=== PATIENT | male | born 1955 | race Caucasian/White ===

== ENCOUNTER → 2024-10-15 12:34 | Outpatient (REF) | payer MEDICARE, OTHER, SELFPAY | LOC: HWRCS 12:34 | PROVIDERS: ATTENDING PHYSICIAN Internal Medicine Cardiovascular Disease; FAMILY PHYSICIAN Internal Medicine | DX: I48.19 Other persistent atrial fibrillation (principal) | CPT/HCPCS: 93306 ==

== ENCOUNTER → 2024-10-17 07:34 | Outpatient (REF) | payer MEDICARE, OTHER, SELFPAY | LOC: DHCBC/DCA 07:34 | PROVIDERS: ATTENDING PHYSICIAN Internal Medicine Cardiovascular Disease; FAMILY PHYSICIAN Internal Medicine | DX: I48.19 Other persistent atrial fibrillation (principal) | CPT/HCPCS: 78452; 93017; A9500 ==

== ENCOUNTER 2024-11-05 11:20 | Day surgery (SDC) | payer MEDICARE, OTHER, SELFPAY ==
[2024-11-05 12:37] VITALS: BMI 30.7
--- NOTE | 2024-11-05 12:38 | ITS.CL.CARDI ---
[employer] - Cardioversion
Cardioversion
Procedure Report:
Date of Procedure: 11/05/2024.
Procedure: Cardioversion.
Indication: Symptomatic atrial fibrillation.
Performing Physician: Bianca Pack MD
Technique: The patient was brought to the holding area. Signed informed consent was obtained. A time out was called and performed. The patient was sedated by a member of the anesthesia service. Anticoagulation status was reviewed and was appropriate
(Eliquis 5 mg p.o. twice daily since 09/25/2024 without missing any doses). R-2 pads were placed anteriorly and posteriorly. A 200 J synchronized biphasic shock restored normal sinus rhythm without significant bradycardia. There were no
complications.
Conclusion: Uncomplicated cardioversion from atrial fibrillation to sinus bradycardia.
Recommendation: Routine post cardioversion care. Continue terminal worker anticoagulation. Reduce metoprolol succinate from 25 mg daily to 25 mg daily.
cc: Candelario
== END 2024-11-05 13:23 | disposition home or self-care (01) ==
LOC: CATH 11:20
PROVIDERS: ATTENDING PHYSICIAN Internal Medicine Cardiovascular Disease; FAMILY PHYSICIAN Internal Medicine
DX: I48.91 Unspecified atrial fibrillation (principal); I08.3 Combined rheumatic disorders of mitral, aortic and tricuspid valves
CPT/HCPCS: 92960; 93005